=== PATIENT | female | born 1995 | race Caucasian/White ===

== ENCOUNTER 2018-09-30 18:04 | Emergency (ER) | payer BC ==
[2018-09-30 18:42] LABS: BASO % 0.3 % (0.0-2.0); EOS # 0.1 K/uL (0.0-0.7); EOS % 0.8 % (0.0-4.0); HEMOGLOBIN 12.1 g/dL (11.0-16.0); LYMPH # 1.3 K/uL (1.0-4.3); LYMPH % 19.5 % (20.0-40.0); MEAN CELL VOLUME 83.7 fL (81.0-99.0); MEAN CORPUSCULAR HEMOGLOBIN 27.3 pg (27.0-31.0); MEAN CORPUSCULAR HGB CONC 32.7 g/dL (33.0-37.0); MEAN PLATELET VOLUME 8.4 fL (7.2-11.7); MONO # 0.5 K/uL (0.0-0.8); MONO % 7.1 % (0.0-10.0); NEUT # 4.9 K/uL (1.8-7.0); NEUT % 72.3 % (50.0-75.0); RBC 4.43 Mil/uL (3.80-5.20); RED CELL DISTRIBUTION WIDTH 13.4 % (11.5-14.5); WHITE BLOOD COUNT 6.7 K/uL (4.8-10.8)
--- NOTE | 2018-09-30 18:44 | C.PDOC ---
History Of Present Illness 23 year old female presents to the ED for evaluation of right-sided, suprapubic pain which began around two weeks ago. Patient describes her pain as sharp and states it occurs sporadically and in intermittent episodes. She also reports brown vaginal discharge. Patient states her last menstrual period was 6 weeks ago. She admits to being sexually active without contraception. She has taken two home tests, both of which have been negative. Patient denies fever, chills or any urinary symptoms at this time. Time Seen by Provider: 09/30/18 18:18 Chief Complaint (Nursing): Abdominal Pain History Per: Patient History/Exam Limitations: no limitations Onset/Duration Of Symptoms: Intermittent Episodes, Other (two weeks ) Current Symptoms Are (Timing): Still Present Quality Of Discomfort: "Pain" Associated Symptoms: denies: Fever, Chills Additional History Per: Patient Abnormal Vaginal Bleeding: No Last Menstral Period: 6 weeks ago Past Medical History Reviewed: Historical Data, Nursing Documentation, Vital Signs Vital Signs: Last Vital Signs Temp 98.9 F 09/30/18 18:07 Pulse 88 09/30/18 18:07 Resp 18 09/30/18 18:07 BP 126/80 09/30/18 18:07 Pulse Ox 100 09/30/18 18:07 - Medical History PMH: No Chronic Diseases Surgical History: No Surg Hx Family History: States: Unknown Family Hx - Social History Hx Alcohol Use: No Hx Substance Use: No - Immunization History Hx Tetanus Toxoid Vaccination: No Hx Influenza Vaccination: No Hx Pneumococcal Vaccination: No Review Of Systems Constitutional: Negative for: Fever, Chills Gastrointestinal: Positive for: Abdominal Pain (right-sided, suprapubic ) Genitourinary: Positive for: Vaginal Discharge (brown ). Negative for: Dysuria, Frequency, Hematuria Physical Exam - Physical Exam Appears: Non-toxic, No Acute Distress Skin: Normal Color, Warm, Dry Head: Atraumatic, Normacephalic Eye(s): bilateral: Normal Inspection Oral Mucosa: Moist Neck: Supple Chest: Symmetrical, No Deformity, No Tenderness Cardiovascular: Rhythm Regular, No Murmur Respiratory: Normal Breath Sounds, No Rales, No Rhonchi, No Wheezing Gastrointestinal/Abdominal: Soft, Tenderness (to right lower suprapubic region ), No Guarding, No Rebound Extremity: Normal ROM, Capillary Refill (less than 2 seconds) Neurological/Psych: Oriented x3, Normal Speech, Normal Cognition ED Course And Treatment - Laboratory Results Result Diagrams: 09/30/18 18:33 09/30/18 18:33 Lab Interpretation: Normal (with negative ) O2 Sat by Pulse Oximetry: 100 (on RA) Pulse Ox Interpretation: Normal - CT Scan/US ultrasound Other Rad Studies (CT/US): Read By Radiologist, Radiology Report Reviewed CT/US Interpretation: History. Right pelvic pain. Comparison. None available. Technique. TA. Findings. Uterus. Measures 7.61 x 2.97 x 4.32 cm. Normal in size and appearance. No fibroid or other mass lesion seen. Endometrium. Measures 5.7 mm in diameter. Unremarkable. Right ovary. Measures 3.72 x 2.2 x 3.12 cm. No solid mass. Normal flow. Cyst measures 1.34 x 0.9 x 1.25 cm. Left ovary. Measures 2.99 x 1.8 x 2.98 cm. No solid mass. Normal flow. Other Findings. None. Impression. 1. Right ovarian simple cyst. 2. Unremarkable uterus and left ovary. Progress Note: Bloodwork, urinalysis and pelvic ultrasound ordered and reviewed. Disposition Counseled Patient/Family Regarding: Studies Performed, Diagnosis, Need For Followup, Rx Given - Disposition Referrals: [facility] [Outside] Disposition: HOME/ ROUTINE Disposition Time: 20:58 Condition: IMPROVED Prescriptions: Naproxen [Naprosyn] 1 tab PO BID PRN #25 tab PRN Reason: Pain Naproxen [Naprosyn] 1 tab PO BID PRN #25 tab PRN Reason: Pain Instructions: Ovarian Cysts Forms: [employer] (Welsh) - Clinical Impression Clinical Impression: Ovarian cyst - Scribe Statement The provider has reviewed the documentation as recorded by the Scribe (Jessica Dickson) Provider Attestation: All medical record entries made by the Scribe were at my direction and person ally dictated by me. I have reviewed the chart and agree that the record accurately reflects my personal performance of the history, physical exam, medical decision making, and the department course for this patient. I have also personally directed, reviewed, and agree with the discharge instructions and disposition.
[2018-09-30 18:55] LABS: ALB/GLOB RATIO 1.4 (1.0-2.1); ALBUMIN 4.7 g/dL (3.5-5.0); ALT/SGPT 18 U/L (9-52); AST/SGOT 21 U/L (14-36); BLOOD UREA NITROGEN 10 mg/dL (7-17); GFR NON-AFRICAN AMERICAN > 60
[2018-09-30 19:03] LABS: SQUAMOUS EPITHIAL < 1 /hpf (0-5); URINE BILIRUBIN NEGATIVE (NEGATIVE); URINE BLOOD 2+ (NEGATIVE); URINE CLARITY Clear (Clear); URINE COLOR Yellow (YELLOW); URINE GLUCOSE (UA) NORMAL (Normal); URINE LEUKOCYTE ESTERASE NEG Leu/uL (Negative); URINE PROTEIN NEGATIVE (NEGATIVE)
[2018-09-30 21:06] VITALS: BP 121/72; PULSE 81; RESP 20; TEMP 97.8; O2SAT 98
--- NOTE | 2018-10-01 09:47 | US ---
Pelvic ultrasound HISTORY: Right-sided pelvic pain. Comparison: None available. TECHNIQUE: Real-time sonography was performed through the pelvis utilizing transabdominal technique. Findings: Please note the patient refused transvaginal study. Beta hCG was less than 2.39. Uterus: 7.6 x 2.9 x 4.3 centimeters. Heterogeneous echotexture. Anteverted. Endometrium measures 5.7 millimeters. Right ovary: 3.7 x 2.2 x 3.1 centimeters. Normal flow. Hypoechoic cyst measuring 1.3 x 0.9 x 1.3 centimeters. Left ovary: 3.0 x 1.8 x 2.5 centimeters. Normal flow. Impression: Limited study as the patient refused transvaginal technique. 1.3 centimeter right ovarian cyst. If pain persists, consider correlation with CT scan of the abdomen and pelvis. A preliminary report was generated at 8:44 p.m. on 09/30/[address] Charles Mathew from [employer].
== END 2018-09-30 21:06 | disposition home or self-care (01) ==
LOC: C.ER 18:04
DX: N83.209 Unspecified ovarian cyst, unspecified side (principal)